=== PATIENT | male | born 1985 | race Caucasian/White ===

== ENCOUNTER 2016-10-04 19:10 | Emergency (ER) | payer MEDICARE ==
--- NOTE | 2016-10-11 07:38 | ER ---
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 He states he returned from mowing his brother's grass in [place] and had acute dizziness, nausea, vomiting, similar to his previous stroke. CT scan negative. NIH stroke scale [address] Diffusion weighted MRI images showed no acute stroke. Discussed findings with Dr. Genao and Dr. Kennedy. Both are in agreement due to high risk factor to initiate Xarelto 20 mg daily. Follow up with Dr. Kennedy due to his antiphospholipid syndrome, previous DVT, tissue aortic valve replacement, and coarctation of the aorta repair. Remainder of his exam is entirely normal. Due to the patient's presentation, findings, and intervention, 30 minutes of critical care is warranted. Long Coburn MD/ jordan JOB #: [id number] CC: Long Coburn MD, Attending Physician Mark Kennedy MD, Family Physician Mark Kennedy MD
== END 2016-10-04 22:30 | disposition home or self-care (01) ==
LOC: ER 19:10
DX: G45.9 Transient cerebral ischemic attack, unspecified (principal); I10 Essential (primary) hypertension; Z86.718 Personal history of other venous thrombosis and embolism; Z86.73 Personal history of transient ischemic attack (TIA), and cerebral infarction without residual deficits; F17.210 Nicotine dependence, cigarettes, uncomplicated; Z88.8 Allergy status to other drugs, medicaments and biological substances; Z88.2 Allergy status to sulfonamides